=== PATIENT | female | born 1995 | race Caucasian/White ===

== ENCOUNTER → 2018-09-10 | Outpatient (CLI) | payer SELFPAY, OTHER | LOC: M WUC 14:10 | DX: S50.01XA Contusion of right elbow, initial encounter (principal); X58.XXXA Exposure to other specified factors, initial encounter; Y92.9 Unspecified place or not applicable; Y93.9 Activity, unspecified; Y99.9 Unspecified external cause status | CPT/HCPCS: 73080 ==

== ENCOUNTER 2019-04-07 21:01 | Emergency (ER) | payer SELFPAY ==
[~2019-04-07] VITALS: Ht 165.1 cm; Wt 79.5 kg
[2019-04-07 21:02] VITALS: BP 142/85
[2019-04-07] MEDS ORDERED: ZOLO100T PO (21:08)
--- NOTE | 2019-04-08 07:34 | REP ---
Left middle finger four views : There is no fracture or dislocation. Mineralization and joint spaces are normal. There are no calcifications or foreign bodies. Impression: Negative left middle finger . Electronically Signed by Fernie Kelsey MD 04/08/2019 07:25 A
== END 2019-04-08 01:42 | disposition left against medical advice (07) ==
LOC: M ED 21:01
DX: Z53.29 Procedure and treatment not carried out because of patient's decision for other reasons (principal)

== ENCOUNTER → 2020-08-05 | Outpatient (CLI) | payer OTHER ==
[~2020-08-05] MED LIST: ZOLO100T PO
--- NOTE | 2020-08-05 14:01 | REP ---
INDICATION: PAIN IN RIGHT ANKLE AND JOINTS OF FOOT COMPARISON: None. TECHNIQUE: AP, lateral, bilateral oblique views right ankle. FINDINGS: No acute fracture or dislocation. Skeletal structures and joint spaces are intact and normal. Ankle mortise appears stable. No subcutaneous emphysema or radiodense foreign body. IMPRESSION: Normal right ankle radiograph series. <Electronically signed by Curtis Carvajal > 08/05/20 [id number]
== END ==
LOC: M WUC 13:35
PROVIDERS: ATTEND Physician Assistant
DX: M25.571 Pain in right ankle and joints of right foot (principal)

== ENCOUNTER → 2020-11-12 | Outpatient (REF) | payer OTHER | LOC: M PLALAB 08:57 | PROVIDERS: ATTEND Advanced Practice Midwife | DX: N92.6 Irregular menstruation, unspecified (principal) | CPT/HCPCS: 36415; 84443; 87624; G0123; G0463 ==

== ENCOUNTER → 2020-12-31 | Outpatient (REF) | payer OTHER | LOC: M SFHCWAGY 17:18 | PROVIDERS: ATTEND Nurse Practitioner Family | DX: N94.9 Unspecified condition associated with female genital organs and menstrual cycle (principal); N89.8 Other specified noninflammatory disorders of vagina ==

== ENCOUNTER → 2021-05-24 | Outpatient (CLI) | payer OTHER ==
[2021-05-24 12:10] LABS: HEMATOCRIT 42.1 % (36.0-47.0); HEMOGLOBIN 14.2 g/dl (12.0-15.5); MEAN CORPUSCULAR HEMOGLOBIN 30.2 pg (27.0-33.0); MEAN CORPUSCULAR HGB CONC 33.7 g/dl (32.0-36.5); MEAN CORPUSCULAR VOLUME 89.6 fl (80.0-96.0); PLATELET COUNT, AUTOMATED 296 10^3/uL (150-450); WHITE BLOOD COUNT 7.7 10^3/uL (4.0-10.0)
[2021-05-24 13:31] LABS: HEPATITIS C VIRUS ABY INDEX 0.1 INDEX (<0.8); HIV 1&2 SCREEN CENTAUR NEGATIVE (NEGATIVE)
[2021-05-24 14:56] LABS: GC DNA AMPLIFICATION NEGATIVE (NEGATIVE)
== END ==
LOC: M PLALAB 09:27
PROVIDERS: ATTEND Specialist
DX: Z34.81 Encounter for supervision of other normal pregnancy, first trimester (principal)

== ENCOUNTER → 2021-08-11 | Outpatient (CLI) | payer OTHER ==
--- NOTE | 2021-08-12 04:03 | REP ---
INDICATION: ANATOMY COMPARISON: None. TECHNIQUE: Transabdominal obstetrical ultrasound with color Doppler evaluation. FINDINGS: Examination demonstrates a single live intrauterine in transverse presentation. motion is identified by technologist. Placenta is noted anterior and grade 1 without evidence for placenta previa or abruption. Amniotic fluid volume is normal. Cervix measures 4.3 cm in length and appears closed.. Selected gestational age: Nineteen weeks 5 days with IMANI 12/31/2021. Gestational age by current measurements 20 weeks 4 days with IMANI 12/25/2021. FHR equals 150 beats per minute. BPD: 4.7 cm at 20 weeks 2 days HC: 18.3 cm at 20 weeks 5 days AC: 15.3 cm at 20 weeks 3 days FL: 3.5 cm at 20 weeks 6 days HL: 3.2 cm at 20 weeks 5 days HC/AC: 1.20 Estimated weight 369 grams (91stpercentile). Anatomical assessment demonstrates normal structures including cranium, choroid plexus, cavum, cerebellum/posterior fossa, facial features, lungs, diaphragm, stomach, cord insertion/three-vessel cord, kidneys/bladder, and extremities. IMPRESSION: 1. Single live intrauterine in transverse lie demonstrating appropriate interval growth. 2. Limited evaluation of the heart/ventricular outflow tracts and spine due to positioning. Remainder of the anatomical assessment is complete and normal. <Electronically signed by Curtis Carvajal > 08/12/21 [id number]
== END ==
LOC: M WHC 10:26
PROVIDERS: ATTEND Specialist
DX: Z34.82 Encounter for supervision of other normal pregnancy, second trimester (principal); Z3A.20 20 weeks gestation of pregnancy

== ENCOUNTER → 2021-09-07 | Outpatient (CLI) | payer OTHER ==
--- NOTE | 2021-09-07 10:34 | REP ---
INDICATION: F/U ANATOMY COMPARISON: 08/11/2021 TECHNIQUE: Transabdominal obstetrical ultrasound with color Doppler evaluation. FINDINGS: Examination demonstrates a single live intrauterine in transverse presentation. motion is identified by technologist. Placenta is noted anterior and grade 1 without evidence for placenta previa or abruption. Amniotic fluid volume is normal. Cervix measures 5.4 cm in length and appears closed.. Selected gestational age: Twenty-three weeks 4 days with IMANI 12/31/2021. Gestational age by current measurements 25 weeks 1 day with IMANI 12/20/2021. FHR equals 146 beats per minute. BPD: 6.1 cm at 24 weeks 4 days HC: 23.2 cm at 25 weeks 1 day AC: 20.6 cm at 25 weeks 1 day FL: 4.7 cm at 25 weeks 4 days HL: 4.2 cm at 25 weeks 3 days HC/AC: 1.12 Estimated weight 792 grams (greater than 97thpercentile based on age by IMANI and 1st ultrasound). Anatomical assessment demonstrates normal structures including four-chamber heart/ventricular outflow tracts and spine. IMPRESSION: Single live intrauterine in transverse lie. Greater than expected weight and growth warrants correlation. In conjunction with prior examination anatomical assessment is complete and normal. <Electronically signed by Curtis Carvajal > 09/07/21 [id number]
== END ==
LOC: M WHC 09:05
PROVIDERS: ATTEND Advanced Practice Midwife
DX: Z34.82 Encounter for supervision of other normal pregnancy, second trimester (principal); Z3A.25 25 weeks gestation of pregnancy

== ENCOUNTER → 2021-10-12 | Outpatient (CLI) | payer OTHER ==
[2021-10-12 10:27] LABS: HEMATOCRIT 36.9 % (36.0-47.0); HEMOGLOBIN 12.6 g/dl (12.0-15.5); MEAN CORPUSCULAR HGB CONC 34.1 g/dl (32.0-36.5); MEAN CORPUSCULAR VOLUME 90.9 fl (80.0-96.0); PLATELET COUNT, AUTOMATED 233 10^3/uL (150-450); RED BLOOD COUNT 4.06 10^6/uL (4.00-5.40); WHITE BLOOD COUNT 8.2 10^3/uL (4.0-10.0)
== END ==
LOC: M PLALAB 07:57
PROVIDERS: ATTEND Obstetrics & Gynecology
DX: Z34.82 Encounter for supervision of other normal pregnancy, second trimester (principal)

== ENCOUNTER → 2021-12-07 | Outpatient (REF) | payer OTHER | LOC: M SFHCWAGY 12:49 | PROVIDERS: ATTEND Specialist | DX: Z34.83 Encounter for supervision of other normal pregnancy, third trimester (principal); Z3A.00 Weeks of gestation of pregnancy not specified | CPT/HCPCS: 87081; 87186; G0463 ==

== ENCOUNTER 2022-01-06 21:57 | Inpatient (IN) | payer OTHER ==
[~2022-01-06] VITALS: Ht 165.1 cm; Wt 94.4 kg
[2022-01-06] MEDS ORDERED: PRENTAB9 PO (22:37)
[2022-01-06] MEDS ORDERED: PYRI100L PO (22:37)
[2022-01-06] MEDS ORDERED: METF500T13 PO (22:37)
[2022-01-06] MEDS ORDERED: SERT-141 PO (22:37)
[2022-01-06] MEDS ORDERED: OXYTOCIN 30 UNITS IN 0.9% NaCl 500ML IV BAG (J2590) As Ordered ONE (23:06)
[2022-01-06] MEDS ORDERED: OXYTOCIN INJ 10 UNITS/ML VIAL (J2590) As Ordered ONE (23:09)
[2022-01-06 23:12] VITALS: BP 119/75
[2022-01-06] MEDS ORDERED: LACTATED RINGER'S 1000 ML IV STA (23:12)
[2022-01-06] MEDS ORDERED: LIDOCAINE 1% MDV 20ML VIAL SC ONE (23:15)
[2022-01-06] MEDS ORDERED: OXYTOCIN DRIP 30 UNITS in IV 1 EA IV PRN (23:15)
[2022-01-06] MEDS ORDERED: OXYTOCIN INJ 10 UNITS/ML VIAL (J2590) IV PRN (23:15)
[2022-01-06] MEDS ORDERED: LIDOCAINE 1% MDV 20ML VIAL As Ordered ONE (23:17)
[2022-01-06 23:26] LABS: CORD GAS ABE A -2.5; CORD GAS HCO3 A 26.7 MEQ/L; CORD GAS O2 SAT A 15.2 %; CORD GAS PCO2 A 66.4 mmHg; CORD GAS PH A 7.223 UNITS; CORD GAS PO2 A 11.6 mmHg; CORD GAS SBC A 20.4 MEQ/L; CORD GAS TCO2 A 28.8 MEQ/L
[2022-01-06 23:27] VITALS: BP 115/76
[2022-01-06 23:27] LABS: CORD GAS ABE V -0.6; CORD GAS HCO3 V 24.1 MEQ/L; CORD GAS O2 SAT V 79.1 %; CORD GAS PH V 7.397 UNITS; CORD GAS PO2 V 32.7 mmHg; CORD GAS SBC V 23.4 MEQ/L; CORD GAS TCO2 V 25.3 MEQ/L
[2022-01-06 23:33] VITALS: BP 123/79
[2022-01-06] MEDS ORDERED: METHYLERGONOVINE MALEATE 0.2 MG/ML VIAL (J2210) IM ONE (23:45)
[2022-01-06 23:50] VITALS: BP 112/71
[2022-01-06 23:59] VITALS: BP 141/64
[2022-01-07] VITALS (7 sets, daily range): BP systolic 106–130; BP diastolic 56–76
[2022-01-07] MEDS ORDERED: OXYTOCIN DRIP 30 UNITS in IV 1 EA IV SCH ×2 (00:10→00:15)
[2022-01-07] MEDS ORDERED: DIBUCAINE 1% OINTMENT 30GM TOP PRN (00:25)
[2022-01-07] MEDS ORDERED: IBUPROFEN 800 MG TAB PO PRN (00:25)
[2022-01-07] MEDS ORDERED: IBUPROFEN 600MG TAB PO PRN (00:25)
[2022-01-07] MEDS ORDERED: DOCUSATE SODIUM 100MG CAPSULE PO PRN (00:25)
[2022-01-07] MEDS ORDERED: ACETAMINOPHEN 500 MG TAB PO PRN (00:25)
[2022-01-07] MEDS ORDERED: RHOGAM 300 MCG (1500 IU) INJ (J2790) IM SCH (00:25)
[2022-01-07] MEDS ORDERED: METHYLERGONOVINE MALEATE 0.2 MG TAB PO PRN (00:25)
[2022-01-07] MEDS ORDERED: MEASLES,MUMPS,RUBELLA VACCINE INJ (MMR-II) (90707) SC SCH (00:25)
[2022-01-07 02:17] LABS: HEMATOCRIT 39.3 % (36.0-47.0); HEMOGLOBIN 13.8 g/dl (12.0-15.5); MEAN CORPUSCULAR HEMOGLOBIN 31.3 pg (27.0-33.0); MEAN CORPUSCULAR HGB CONC 35.1 g/dl (32.0-36.5); MEAN CORPUSCULAR VOLUME 89.1 fl (80.0-96.0); PLATELET COUNT, AUTOMATED 191 10^3/uL (150-450); RED BLOOD COUNT 4.41 10^6/uL (4.00-5.40); WHITE BLOOD COUNT 17.7 10^3/uL (4.0-10.0)
[2022-01-07] MEDS: PRENATAL VITAMINS CHEWABLE TABLET PO SCH (10:24)
[2022-01-07] MEDS: ACETAMINOPHEN TAB 650MG DOSE (2X325MG) PO PRN (22:51)
[2022-01-08 05:46] VITALS: BP 107/59
[2022-01-08] MEDS ORDERED: IBUP80TA PO (08:26)
[2022-01-08] MEDS ORDERED: ACET-683 PO (08:26)
[2022-01-08] MEDS: PRENATAL VITAMINS CHEWABLE TABLET PO SCH (09:07)
[2022-01-08] MEDS: ACETAMINOPHEN TAB 650MG DOSE (2X325MG) PO PRN (09:08)
== END 2022-01-08 13:50 | disposition home or self-care (01) | DRG 806 ==
LOC: M LDO 21:57 → M LDI 23:00 → M OBS 01-07 02:39
PROVIDERS: ADMIT Advanced Practice Midwife; ATTEND Advanced Practice Midwife
PROC: 10E0XZZ Delivery of Products of Conception, External Approach (ICD-10-PCS; principal; 2022-01-06)
PROC: 0HQ9XZZ Repair Perineum Skin, External Approach (ICD-10-PCS; 2022-01-06)
DX: O48.0 Post-term pregnancy (principal); Z37.0 Single live birth; O72.1 Other immediate postpartum hemorrhage; O99.824 Streptococcus B carrier state complicating childbirth; E66.9 Obesity, unspecified; O99.214 Obesity complicating childbirth; O32.1XX0 Maternal care for breech presentation, not applicable or unspecified; O69.1XX0 Labor and delivery complicated by cord around neck, with compression, not applicable or unspecified; O70.0 First degree perineal laceration during delivery; Z3A.40 40 weeks gestation of pregnancy

== ENCOUNTER → 2022-04-05 | Outpatient (CLI) | payer OTHER ==
[~2022-04-05] MED LIST changes: +ACET-683 PO; +IBUP80TA PO; +METF500T13 PO; +PRENTAB9 PO; +PYRI100L PO; +SERT-141 PO
[2022-04-05 07:55] LABS: BASO % 0.8 % (0.0-1.0); EOS # 0.3 10^3/uL (0.0-0.5); HEMATOCRIT 45.9 % (36.0-47.0); HEMOGLOBIN 15.1 g/dl (12.0-15.5); LYMPH # 2.3 10^3/uL (1.5-5.0); LYMPH % 43.4 % (24.0-44.0); MEAN CORPUSCULAR HEMOGLOBIN 29.5 pg (27.0-33.0); MEAN CORPUSCULAR HGB CONC 32.9 g/dl (32.0-36.5); MEAN CORPUSCULAR VOLUME 89.8 fl (80.0-96.0); MONO # 0.3 10^3/uL (0.0-0.8); MONO % 6.5 % (2.0-8.0); NEUTROPHILS # 2.3 10^3/uL (1.5-8.5); NEUTROPHILS % 44.1 % (36.0-66.0); PLATELET COUNT, AUTOMATED 307 10^3/uL (150-450); RED BLOOD COUNT 5.11 10^6/uL (4.00-5.40); WHITE BLOOD COUNT 5.2 10^3/uL (4.0-10.0)
[2022-04-05 08:04] LABS: APPEARANCE, URINE CLEAR (CLEAR); BACTERIA, URINE AUTO 1+ (NEGATIVE); BILIRUBIN, URINE AUTO NEGATIVE (NEGATIVE); BLOOD, URINE BLOOD NEGATIVE (NEGATIVE); COLOR, URINE YELLOW (YELLOW); GLUCOSE, URINE (UA) AUTO NEGATIVE (NEGATIVE); KETONE, URINE AUTO NEGATIVE (NEGATIVE); LEUKOCYTE ESTERASE, URINE AUTO NEGATIVE (NEGATIVE); NITRITE, URINE AUTO NEGATIVE (NEGATIVE); PROTEIN, URINE AUTO NEGATIVE (NEGATIVE); RBC, URINE AUTO 0 /HPF (0-3); SPECIFIC GRAVITY URINE AUTO 1.016 (1.002-1.035); SQUAMOUS EPITHELIAL CELL UR AU 0 /HPF (0-6); UROBILINOGEN, URINE AUTO 0.2 mg/dL (0.0-2.0); WBC, URINE AUTO 0 /HPF (0-3)
[2022-04-05 08:15] LABS: HEMOGLOBIN A1c 5.3 %
[2022-04-05 08:23] LABS: ALBUMIN 3.9 GM/DL (3.2-5.2); ALT/SGPT 46 U/L (12-78); BILIRUBIN,TOTAL 0.2 MG/DL (0.2-1.0); BLOOD UREA NITROGEN 21 MG/DL (7-18); CALCIUM LEVEL 9.3 MG/DL (8.5-10.1); CARBON DIOXIDE LEVEL 28 MEQ/L (21-32); CHLORIDE LEVEL 108 MEQ/L (98-107); CHOLESTEROL LEVEL 222 MG/DL (<200); CHOLESTEROL RISK RATIO 4.036 (<5); CREATININE FOR GFR 0.66 MG/DL (0.55-1.30); GLOMERULAR FILTRATION RATE > 60.0 (>60); GLUCOSE, FASTING 93 MG/DL (70-100); HDL CHOLESTEROL 55 MG/DL (>40); LDL CHOLESTEROL 150 MG/DL (<100); NON-HDL-C 167 MG/DL; POTASSIUM SERUM 4.3 MEQ/L (3.5-5.1); SODIUM LEVEL 141 MEQ/L (136-145); THYROID STIMULATING HORMONE 0.788 uIU/ML (0.358-3.740); TOTAL PROTEIN 7.3 GM/DL (6.4-8.2); TRIGLYCERIDES LEVEL 83 MG/DL (<150)
== END ==
LOC: M LAB 07:10
PROVIDERS: ATTEND Physician Assistant
DX: F41.9 Anxiety disorder, unspecified (principal)

== ENCOUNTER → 2023-08-07 | Outpatient (CLI) | payer OTHER ==
[2023-08-07 14:34] LABS: HEMATOCRIT 43.8 % (36.0-47.0); HEMOGLOBIN 14.6 g/dl (12.0-15.5); MEAN CORPUSCULAR HEMOGLOBIN 30.4 pg (27.0-33.0); MEAN CORPUSCULAR HGB CONC 33.3 g/dl (32.0-36.5); MEAN CORPUSCULAR VOLUME 91.1 fl (80.0-96.0); PLATELET COUNT, AUTOMATED 280 10^3/uL (150-450); RED BLOOD COUNT 4.81 10^6/uL (4.00-5.40); WHITE BLOOD COUNT 6.4 10^3/uL (4.0-10.0)
[2023-08-07 15:11] LABS: HIV 1&2 SCREEN NEGATIVE (NEGATIVE)
[2023-08-07 15:18] LABS: HEPATITIS C VIRUS ABY INDEX 0.04 INDEX (<0.8)
[2023-08-07 16:25] LABS: GC DNA AMPLIFICATION NEGATIVE (NEGATIVE)
== END ==
LOC: M PLALAB 10:40
PROVIDERS: ATTEND Advanced Practice Midwife
DX: Z34.91 Encounter for supervision of normal pregnancy, unspecified, first trimester (principal); Z3A.00 Weeks of gestation of pregnancy not specified

== ENCOUNTER → 2023-08-16 | Outpatient (CLI) | payer OTHER | LOC: M WUC 10:09 | PROVIDERS: ATTEND Physician Assistant | DX: M79.671 Pain in right foot (principal) ==

== ENCOUNTER → 2023-10-31 | Outpatient (CLI) | payer OTHER | LOC: M WHC 11:42 | PROVIDERS: ATTEND Advanced Practice Midwife | DX: O09.892 Supervision of other high risk pregnancies, second trimester (principal) ==

== ENCOUNTER → 2023-12-11 | Outpatient (CLI) | payer OTHER ==
[2023-12-11 14:26] LABS: HEMATOCRIT 38.4 % (36.0-47.0); HEMOGLOBIN 12.8 g/dl (12.0-15.5); MEAN CORPUSCULAR HEMOGLOBIN 31.1 pg (27.0-33.0); MEAN CORPUSCULAR HGB CONC 33.3 g/dl (32.0-36.5); MEAN CORPUSCULAR VOLUME 93.2 fl (80.0-96.0); PLATELET COUNT, AUTOMATED 230 10^3/uL (150-450); RED BLOOD COUNT 4.12 10^6/uL (4.00-5.40); WHITE BLOOD COUNT 8.3 10^3/uL (4.0-10.0)
[2023-12-11 15:51] LABS: GC DNA AMPLIFICATION NEGATIVE (NEGATIVE)
== END ==
LOC: M PLALAB 09:34
PROVIDERS: ATTEND Obstetrics & Gynecology
DX: Z34.82 Encounter for supervision of other normal pregnancy, second trimester (principal); Z3A.00 Weeks of gestation of pregnancy not specified

== ENCOUNTER → 2024-02-22 | Outpatient (REF) | payer OTHER | LOC: M SFHCWAGY 10:21 | PROVIDERS: ATTEND Obstetrics & Gynecology | DX: Z36.89 Encounter for other specified antenatal screening (principal); Z3A.36 36 weeks gestation of pregnancy ==

== ENCOUNTER 2024-03-16 02:18 | Inpatient (IN) | payer OTHER ==
[~2024-03-16] VITALS: Ht 162.6 cm; Wt 95.1 kg
[2024-03-16] VITALS (30 sets, daily range): BP systolic 101–137; BP diastolic 56–88; O2SAT 98
[2024-03-16] MEDS ORDERED: CARBOPROST TROMETHAMINE 250 MCG/ML AMP IM PRN (02:45)
[2024-03-16] MEDS ORDERED: OXYTOCIN DRIP 30 UNITS in IV 1 EA IV PRN (02:45)
[2024-03-16] MEDS ORDERED: LACTATED RINGER'S 1000 ML IV PRN (02:45)
[2024-03-16] MEDS ORDERED: TRANEXAMIC ACID INJection 1,000 MG in NS 100 ML IV PRN (02:45)
[2024-03-16] MEDS ORDERED: METHYLERGONOVINE MALEATE 0.2MG/ML 1ML VIAL IM PRN (02:45)
[2024-03-16 03:35] LABS: HEMATOCRIT 34.6 % (36.0-47.0); HEMOGLOBIN 11.6 g/dl (12.0-15.5); MEAN CORPUSCULAR HGB CONC 33.5 g/dl (32.0-36.5); MEAN CORPUSCULAR VOLUME 86.5 fl (80.0-96.0); PLATELET COUNT, AUTOMATED 208 10^3/uL (150-450); WHITE BLOOD COUNT 5.9 10^3/uL (4.0-10.0)
[2024-03-16] MEDS: PENICILLIN G POTASSIUM 5 MU IV 5 MU in D5W MINI-BAG PLUS 100 ML IV STA (03:44)
[2024-03-16 04:58] LABS: HEPATITIS C VIRUS ABY INDEX < 0.02 INDEX (<0.8)
[2024-03-16] MEDS: PEN G POT 3,000,000 UNIT/50 ML 3,000,000 UNIT in IV 1 EA IV SCH (07:24)
[2024-03-16] MEDS: LR 1,000 ML IV SCH (07:24)
[2024-03-16] MEDS: OXYTOCIN DRIP 30 UNITS in IV 1 EA IV SCH ×2 (13:58→18:58)
[2024-03-16] MEDS ORDERED: LR 500 ML IV PRN (16:45)
[2024-03-16] MEDS ORDERED: ONDANSETRON 4MG 2ML VIAL IV PRN (16:45)
[2024-03-16] MEDS ORDERED: EPIDURAL/PCA KEYS XX PRN (16:45)
[2024-03-16] MEDS ORDERED: diphenhydrAMINE 50MG/ML VIAL IV PRN (16:45)
[2024-03-16] MEDS ORDERED: NALOXONE INJ 0.4MG/1ML VIAL IV PRN (16:45)
[2024-03-16] MEDS ORDERED: ePHEDrine SULFATE 25 MG/5 ML(5MG/ML) SYRINGE IVP PRN (16:45)
[2024-03-16] MEDS: FENTANYL/ROPIVACAINE/NACL BAG 100 ML EPIDURAL SCH (17:31)
[2024-03-16] MEDS ORDERED: DOCUSATE SODIUM 100MG CAPSULE PO PRN (18:40)
[2024-03-16] MEDS ORDERED: METHYLERGONOVINE MALEATE 0.2 MG TAB PO PRN (18:40)
[2024-03-16] MEDS ORDERED: ACETAMINOPHEN 500 MG TAB PO PRN (18:40)
[2024-03-16] MEDS ORDERED: RHO(D) IMMUNE GLOBULIN/MALTOSE 500MCG(2500IU)/2.2ML VIAL (WINRHO) IM SCH (18:40)
[2024-03-16] MEDS ORDERED: DIBUCAINE 1% OINTMENT 30GM TOP PRN (18:40)
[2024-03-16] MEDS ORDERED: OXYTOCIN 30UNITS IN 0.9% NaCl 500ML IV BAG As Ordered ONE (18:47)
[2024-03-17 06:00] VITALS: BP 127/69; O2SAT 99
[2024-03-17] MEDS: PRENATAL VITAMINS CHEWABLE TABLET PO SCH (08:08)
[2024-03-17] MEDS: IBUPROFEN 600MG TAB PO PRN (08:09)
[2024-03-17] MEDS ORDERED: SERTRALINE HCL 50 MG TAB PO SCH (09:00)
[2024-03-17 18:00] VITALS: BP 133/75; O2SAT 98
[2024-03-17] MEDS: SERTRALINE HCL 50 MG TAB PO SCH (20:56)
[2024-03-18 06:00] VITALS: BP 112/67; O2SAT 98
[2024-03-18] MEDS ORDERED: MEASLES,MUMPS,RUBELLA VACCINE INJ (MMR-II) SC.IMMUN ONE (09:00)
== END 2024-03-18 13:50 | disposition home or self-care (01) | DRG 807 ==
LOC: M LDO 02:18 → M LDI 02:31 → M OBS 22:22
PROVIDERS: ADMIT Obstetrics & Gynecology; ATTEND Obstetrics & Gynecology
PROC: 10E0XZZ Delivery of Products of Conception, External Approach (ICD-10-PCS; principal; 2024-03-16)
PROC: 0HQ9XZZ Repair Perineum Skin, External Approach (ICD-10-PCS; 2024-03-16)
DX: O42.02 Full-term premature rupture of membranes, onset of labor within 24 hours of rupture (principal); Z37.0 Single live birth; Z3A.39 39 weeks gestation of pregnancy; Z87.51 Personal history of pre-term labor; O69.82X0 Labor and delivery complicated by other cord entanglement, without compression, not applicable or unspecified; O99.824 Streptococcus B carrier state complicating childbirth; O70.0 First degree perineal laceration during delivery